=== PATIENT | female | born 1980 | race Caucasian/White ===

== ENCOUNTER 2021-05-17 12:09 | Observation (INO) | payer MEDICARE, SELFPAY ==
[2021-05-17] MEDS ORDERED: Metoclopramide HCl 10 MG/2 ML VIAL ONE (13:04)
[2021-05-17] MEDS ORDERED: HYDROmorphone 0.5 MG/0.5 ML SYRINGE ONE ×3 (13:05→15:56)
[2021-05-17] MEDS ORDERED: diphenhydrAMINE 50 MG/ML VIAL ONE (13:31)
[2021-05-17] MEDS ORDERED: Promethazine HCl 25 MG/ML VIAL ONE ×2 (13:32→20:34)
[2021-05-17] MEDS ORDERED: Senokot S 8.6-50 MG TAB PO PRN (14:51)
[2021-05-17] MEDS ORDERED: Bisacodyl 10 MG SUPP PR PRN (14:51)
[2021-05-17] MEDS ORDERED: Zolpidem Tartrate 5 MG TAB PO PRN (14:51)
[2021-05-17] MEDS ORDERED: Acetaminophen 325 MG TAB PO PRN (14:51)
[2021-05-17] MEDS ORDERED: Loperamide HCl 2 MG CAP PO PRN (14:51)
[2021-05-17] MEDS ORDERED: Calcium Carbonate 500 MG ChewTAB PO PRN (14:51)
[2021-05-17] MEDS ORDERED: Guaifenesin DM 100-10/5 ML UDCUP PO PRN (14:51)
[2021-05-17] MEDS ORDERED: cefTRIAXone\\ROCEPHIN 1 GM in Sodium Chloride 0.9% 100 ML IVPB SCH (15:00)
[2021-05-17] MEDS ORDERED: hydrALAZINE 20 MG/ML VIAL SLOW IVP PRN (15:08)
[2021-05-17] MEDS ORDERED: Cepastat Lozenges 1 LOZ PO PRN (15:08)
[2021-05-17] MEDS ORDERED: Hydrocerin (Eucerin) Cream 120 gm Jar TOP PRN (15:08)
[2021-05-17] MEDS ORDERED: GUAIFENESIN SF SOLN 200 MG/10 ML UDCUP PO PRN (15:08)
[2021-05-17] MEDS ORDERED: Benzonatate 100 MG CAP PO PRN (15:08)
[2021-05-17] MEDS ORDERED: Artificial Tear Sol 15 ML BOT EA EYE PRN (15:08)
[2021-05-17] MEDS ORDERED: Loratadine 10 MG TAB PO PRN (15:08)
[2021-05-17] MEDS ORDERED: Sodium Chloride 0.65% Nasal 44 ML BOT EA NARE PRN (15:08)
[2021-05-17] MEDS ORDERED: HYDROmorphone 2 MG TAB PO SCH ×2 (16:30→18:00)
[2021-05-17 18:31] LABS: SARS-CoV-2 NAA Rapid Test Not Detected (NotDetected)
[2021-05-17] MEDS: DIPHENHYDRAMINE IVPB SCH (19:00)
[2021-05-17] MEDS: Promethazine HCl 25 MG in Sodium Chloride 0.9% 50 ML IVPB SCH ×2 (19:00→20:50)
[2021-05-17] MEDS: SODIUM CHLORIDE 0.9% IVPB SCH (19:00)
[2021-05-17] MEDS ORDERED: Famotidine/PF 20 mg/2ml Vial SLOW IVP SCH (21:00)
[2021-05-17] MEDS ORDERED: Famotidine/PF 20 mg/2ml Vial ONE (21:20)
[2021-05-17] MEDS: HYDROmorphone 2 MG TAB PO PRN (21:50)
[2021-05-17] MEDS: D5 0.9% NS w/ 20 mEq KCl 1,000 ML IV SCH (22:00)
[2021-05-17] MEDS ORDERED: HYDROmorphone 2 MG TAB ONE (22:28)
[2021-05-17] MEDS ORDERED: cefTRIAXone\\ROCEPHIN 1 GM VIAL ONE (22:38)
[2021-05-18] MEDS: DIPHENHYDRAMINE IVPB SCH
[2021-05-18] MEDS: SODIUM CHLORIDE 0.9% IVPB SCH
[2021-05-18] MEDS ORDERED: HYDROmorphone 2 MG TAB ONE ×3 (02:11→09:57)
[2021-05-18] MEDS: HYDROmorphone 2 MG TAB PO PRN ×3 (02:30→11:00)
[2021-05-18] MEDS: Promethazine HCl 25 MG in Sodium Chloride 0.9% 50 ML IVPB SCH (04:00)
[2021-05-18 04:14] LABS: Anion Gap 12 mmol/L (10-20); BUN (Urea Nitrogen) 11 mg/dL (7.0-18.7); Calc. Creatinine Clearance 0 mL/min (70-130); Carbon Dioxide 23 mmol/L (22-29); Chloride 110 mmol/L (98-107); Glucose 121 mg/dL (70-105); Potassium 4.5 mmol/L (3.5-5.1); Sodium 140 mmol/L (136-145)
[2021-05-18 04:20] LABS: #Eosinphils 0.3 10x3/uL (0.0-0.5); #Monocytes 0.4 10x3/uL (0.0-1.1); #Neutrophils 3.1 10x3/uL (1.5-8.4); %Basophils 0.6 % (0.0-2.0); %Eosinophils 5.3 % (0.0-6.0); %Lymphocytes 23.8 % (18.0-47.0); %Monocytes 8.4 % (0.0-10.0); %Neutrophils 61.7 % (40.0-75.0); Mean Corpuscular HGB CONC 28.6 g/dL (32.0-36.0); Mean Corpuscular Hemoglobin 22.2 pg (27.0-33.0); Mean Corpuscular Volume 77.8 fl (81.6-98.3); Platelet Count 173 10x3/uL (150-450); RBC Distribution Width 14.9 % (11.5-14.5); Red Blood Cell (RBC) Count 4.05 10x6/uL (3.90-5.03); White Blood Cell (WBC) Count 5.1 10x3/uL (3.5-10.5)
[2021-05-18 04:39] LABS: Hypochromia SLIGHT = 6-15 cells (100X) (0-5/hpf)
[2021-05-18] MEDS: D5 0.9% NS w/ 20 mEq KCl 1,000 ML IV SCH (05:00)
[2021-05-18] MEDS ORDERED: Potassium Chloride 20 MEQ TAB ONE (05:58)
== END 2021-05-18 11:47 | disposition home or self-care (01) ==
LOC: CSHERS 12:09 → CSHERHOLD 16:55 → INTOOBSV 16:55
PROVIDERS: ADMIT Family Medicine; ATTEND Hospitalist
DX: R10.9 Unspecified abdominal pain (principal); R31.0 Gross hematuria; F41.9 Anxiety disorder, unspecified; F32.9 Major depressive disorder, single episode, unspecified; E66.9 Obesity, unspecified; M54.5 Low back pain; Z79.899 Other long term (current) drug therapy; Z20.822 Contact with and (suspected) exposure to COVID-19
CPT/HCPCS: 80048; 85025; 94760; U0002; 36415; 96374; 96375; G0378; J0696; J1170; J1200; J2550; J2765; J3480; J3490; S0028

== ENCOUNTER 2021-05-23 15:16 | Emergency (ER) | payer MEDICARE | END 2021-05-23 21:19 | disposition left against medical advice (07) | LOC: CSHERS 15:16 | DX: Z53.21 Procedure and treatment not carried out due to patient leaving prior to being seen by health care provider (principal) ==

== ENCOUNTER 2021-07-27 12:16 | Emergency (ER) | payer MEDICARE ==
[2021-07-27 12:39] LABS: Clarity Slightly Cloudy (Clear)
[2021-07-27 12:40] LABS: Pregnancy Test - Urine (BHCG) Negative (Negative); Pregu Control Background? CLEAR/WHITE (CLR/WHITE); Pregu Control Bar Appear? YES (CONTROL BAR)
[2021-07-27 13:09] LABS: Glucose, Urine (Dipstick) Unable to Interpret mg/dL (Negative); Ketone, Urine Unable to Interpret mg/dL (Negative); Leukocyte Unable to Interpret (Negative); Nitrite Unable to Interpret (Negative); Protein, Urine (Dipstick) Unable to Interpret mg/dl (Neg-Trace); Urobilinogen UNABLE TO INTERPRET mg/dL (Less than 2)
[2021-07-27 13:10] LABS: Bilirubin Unable to Interpret (Negative); Blood, Urine Unable to Interpret (Negative)
[2021-07-27 13:11] LABS: Bacteria/HPF None Seen HPF (None Seen); RBC/HPF 21-50 HPF (0-3); Squamous Epithelial 0-3 HPF (0-3); WBC/HPF None Seen HPF (0-3)
[2021-07-27 13:14] LABS: #Eosinphils 0.5 10x3/uL (0.0-0.5); #Monocytes 0.2 10x3/uL (0.0-1.1); #Neutrophils 3.1 10x3/uL (1.5-8.4); %Basophils 0.6 % (0.0-2.0); %Eosinophils 8.9 % (0.0-6.0); %Lymphocytes 25.9 % (18.0-47.0); %Neutrophils 60.4 % (40.0-75.0); Hemoglobin 11.1 g/dL (12.0-15.5); Mean Corpuscular HGB CONC 28.2 g/dL (32.0-36.0); Mean Corpuscular Hemoglobin 22.8 pg (27.0-33.0); Mean Corpuscular Volume 80.9 fl (81.6-98.3); Mean Platelet Volume 10.3 fl (7.4-10.4); Platelet Count 373 10x3/uL (150-450); RBC Distribution Width 15.9 % (11.5-14.5); Red Blood Cell (RBC) Count 4.87 10x6/uL (3.90-5.03); White Blood Cell (WBC) Count 5.1 10x3/uL (3.5-10.5)
[2021-07-27 13:30] LABS: ALT (SGPT) 17 U/L (8-55); Albumin 4.2 g/dL (3.5-5.0); Alkaline Phosphatase 119 U/L (40-110); Anion Gap 17 mmol/L (10-20); BUN (Urea Nitrogen) 11 mg/dL (7.0-18.7); Bilirubin, Total 0.4 mg/dL (0.2-1.2); Calc. Creatinine Clearance 0 mL/min (70-130); Calcium 9.3 mg/dL (7.8-10.44); Carbon Dioxide 20 mmol/L (22-29); Chloride 107 mmol/L (98-107); Globulin 4.5 g/dL (2.4-3.5); Glucose 137 mg/dL (70-105); Lipase 31 U/L (8-78); Potassium 5.1 mmol/L (3.5-5.1); Protein, Total 8.7 g/dL (6.0-8.3); Sodium 139 mmol/L (136-145)
[2021-07-27 13:40] LABS: AST (SGOT) 33 U/L (5-34)
[2021-07-27 14:10] LABS: Anisocytosis SLIGHT = 6-15 cells (100X) (0-5/hpf); Hypochromia SLIGHT = 6-15 cells (100X) (0-5/hpf); Microcytosis SLIGHT = 6-15 cells (100X) (0-5/hpf); Platelet Morphology Comment Appears Adequate
[2021-07-27] MEDS ORDERED: HYDROmorphone 0.5 MG/0.5 ML SYRINGE ONE ×3 (14:40→17:43)
[2021-07-27] MEDS ORDERED: Promethazine HCl 25 MG/ML VIAL ONE (14:41)
== END 2021-07-27 18:22 | disposition home or self-care (01) ==
LOC: CSHERS 12:16
DX: R10.9 Unspecified abdominal pain (principal)
CPT/HCPCS: 36415; 80053; 81003; 81015; 81025; 83690; 85025; 96361; 96365; 96375; 96376; J1170; J2550

== ENCOUNTER 2021-07-28 10:01 | Observation (INO) | payer MEDICARE ==
[2021-07-28] MEDS ORDERED: Morphine 4 MG/ML VIAL ONE (11:38)
[2021-07-28] MEDS ORDERED: Ketamine 50 MG/ML (10ML VIAL) ONE (11:55)
[2021-07-28 12:05] LABS: Hemoglobin 9.6 g/dL (12.0-15.5); Mean Corpuscular HGB CONC 29.1 g/dL (32.0-36.0); Mean Corpuscular Hemoglobin 22.9 pg (27.0-33.0); Mean Corpuscular Volume 78.6 fl (81.6-98.3); Mean Platelet Volume 9.7 fl (7.4-10.4); Platelet Count 318 10x3/uL (150-450); RBC Distribution Width 15.8 % (11.5-14.5); White Blood Cell (WBC) Count 4.6 10x3/uL (3.5-10.5)
[2021-07-28 12:07] LABS: ALT (SGPT) 14 U/L (8-55); AST (SGOT) 14 U/L (5-34); Albumin 3.8 g/dL (3.5-5.0); Alkaline Phosphatase 100 U/L (40-110); Anion Gap 11 mmol/L (10-20); BUN (Urea Nitrogen) 8 mg/dL (7.0-18.7); Bilirubin, Total 0.3 mg/dL (0.2-1.2); Calc. Creatinine Clearance 0 mL/min (70-130); Carbon Dioxide 24 mmol/L (22-29); Chloride 109 mmol/L (98-107); Globulin 3.9 g/dL (2.4-3.5); Glucose 88 mg/dL (70-105); Protein, Total 7.7 g/dL (6.0-8.3); Sodium 140 mmol/L (136-145)
[2021-07-28 12:28] LABS: #Eosinphils 0.4 10x3/uL (0.0-0.5); #Monocytes 0.2 10x3/uL (0.0-1.1); #Neutrophils 2.2 10x3/uL (1.5-8.4); %Basophils 0.9 % (0.0-2.0); %Eosinophils 8.7 % (0.0-6.0); %Lymphocytes 38.3 % (18.0-47.0); %Neutrophils 46.9 % (40.0-75.0)
[2021-07-28 12:38] LABS: Elliptocytes SLIGHT = 2-5 cells (100X) (0-1/hpf); Ovalocytes SLIGHT = 2-5 cells (100X) (0-1/hpf)
[2021-07-28 12:39] LABS: Platelet Morphology Comment Appears Adequate
[2021-07-28] MEDS ORDERED: Acetaminophen 325 MG TAB PO PRN (14:45)
[2021-07-28] MEDS ORDERED: Promethazine 25 MG TAB PO PRN (14:51)
[2021-07-28 14:56] VITALS: BMI 21.2
[2021-07-28] MEDS: HYDROmorphone 2 MG TAB PO PRN ×3 (15:11→23:16)
[2021-07-28] MEDS: Lactated Ringer's 1,000 ML IV SCH ×2 (15:12→22:04)
[2021-07-28] MEDS: diphenhydrAMINE 50 MG/ML VIAL IVP PRN ×2 (16:35→22:03)
[2021-07-28] MEDS ORDERED: FLUoxetine HCl 20 MG CAP PO SCH (21:00)
[2021-07-28 21:24] LABS: Hemoglobin 9.5 g/dL (12.0-15.5)
[2021-07-29 00:37] LABS: SARS-CoV-2 PCR by NAA Not Detected (NotDetected)
[2021-07-29] MEDS: HYDROmorphone 2 MG TAB PO PRN ×3 (03:06→11:12)
[2021-07-29] MEDS: diphenhydrAMINE 50 MG/ML VIAL IVP PRN (04:22)
[2021-07-29 05:38] LABS: Anion Gap 14 mmol/L (10-20); BUN (Urea Nitrogen) 15 mg/dL (7.0-18.7); Calc. Creatinine Clearance 103 mL/min (70-130); Calcium 8.4 mg/dL (7.8-10.44); Carbon Dioxide 19 mmol/L (22-29); Chloride 108 mmol/L (98-107); Glucose 87 mg/dL (70-105); Potassium 4.4 mmol/L (3.5-5.1); Sodium 137 mmol/L (136-145)
[2021-07-29] MEDS: Lactated Ringer's 1,000 ML IV SCH (05:53)
[2021-07-29 06:24] LABS: #Basophils 0.1 10x3/uL (0.0-0.2); #Eosinphils 0.4 10x3/uL (0.0-0.5); #Monocytes 0.3 10x3/uL (0.0-1.1); #Neutrophils 2.2 10x3/uL (1.5-8.4); %Basophils 1.1 % (0.0-2.0); %Eosinophils 8.4 % (0.0-6.0); %Lymphocytes 37.9 % (18.0-47.0); %Monocytes 6.9 % (0.0-10.0); %Neutrophils 45.5 % (40.0-75.0); Hemoglobin 8.7 g/dL (12.0-15.5); Mean Corpuscular HGB CONC 29.4 g/dL (32.0-36.0); Mean Corpuscular Hemoglobin 23.3 pg (27.0-33.0); Mean Corpuscular Volume 79.4 fl (81.6-98.3); Mean Platelet Volume 9.5 fl (7.4-10.4); Platelet Count 246 10x3/uL (150-450); RBC Distribution Width 15.7 % (11.5-14.5); Red Blood Cell (RBC) Count 3.73 10x6/uL (3.90-5.03); White Blood Cell (WBC) Count 4.8 10x3/uL (3.5-10.5)
[2021-07-29 08:35] VITALS: BP 101/59; TEMP 97.3
== END 2021-07-29 11:44 | disposition home or self-care (01) ==
LOC: CSHERS 10:01 → CSHTELE 13:49
PROVIDERS: ADMIT Hospitalist; ATTEND Physician Assistant Medical
DX: R10.9 Unspecified abdominal pain (principal); N39.8 Other specified disorders of urinary system; D62 Acute posthemorrhagic anemia; R11.2 Nausea with vomiting, unspecified; Z79.899 Other long term (current) drug therapy; Z90.49 Acquired absence of other specified parts of digestive tract; Z90.710 Acquired absence of both cervix and uterus; Z20.822 Contact with and (suspected) exposure to COVID-19
CPT/HCPCS: 80048; 80053; 85014; 85018; 85025 ×2; 96374; 96375 ×2; 96376 ×2; 99284; G0378 ×2; U0003; U0005; J1200; J2270; J7120

== ENCOUNTER 2021-07-31 17:01 | Observation (INO) | payer MEDICARE ==
[2021-07-31 18:02] LABS: #Eosinphils 0.4 10x3/uL (0.0-0.5); #Monocytes 0.4 10x3/uL (0.0-1.1); #Neutrophils 2.3 10x3/uL (1.5-8.4); %Basophils 0.8 % (0.0-2.0); %Eosinophils 7.7 % (0.0-6.0); %Lymphocytes 39.4 % (18.0-47.0); %Monocytes 7.5 % (0.0-10.0); %Neutrophils 44.4 % (40.0-75.0); Hemoglobin 9.4 g/dL (12.0-15.5); Mean Corpuscular HGB CONC 29.4 g/dL (32.0-36.0); Mean Corpuscular Hemoglobin 22.9 pg (27.0-33.0); Mean Corpuscular Volume 77.9 fl (81.6-98.3); Mean Platelet Volume 9.9 fl (7.4-10.4); Platelet Count 293 10x3/uL (150-450); RBC Distribution Width 15.3 % (11.5-14.5); Red Blood Cell (RBC) Count 4.11 10x6/uL (3.90-5.03); White Blood Cell (WBC) Count 5.1 10x3/uL (3.5-10.5)
[2021-07-31 18:10] LABS: ALT (SGPT) 14 U/L (8-55); AST (SGOT) 13 U/L (5-34); Albumin 3.9 g/dL (3.5-5.0); Alkaline Phosphatase 82 U/L (40-110); Anion Gap 12 mmol/L (10-20); BUN (Urea Nitrogen) 7 mg/dL (7.0-18.7); Bilirubin, Total 0.3 mg/dL (0.2-1.2); CK (CPK) 28 U/L (29-168); Calc. Creatinine Clearance 0 mL/min (70-130); Calcium 8.6 mg/dL (7.8-10.44); Carbon Dioxide 24 mmol/L (22-29); Chloride 111 mmol/L (98-107); Globulin 3.2 g/dL (2.4-3.5); Glucose 71 mg/dL (70-105); Lipase 24 U/L (8-78); Magnesium 1.9 mg/dL (1.6-2.6); Potassium 3.7 mmol/L (3.5-5.1); Protein, Total 7.1 g/dL (6.0-8.3); Sodium 143 mmol/L (136-145)
[2021-07-31] MEDS ORDERED: HYDROmorphone 0.5 MG/0.5 ML SYRINGE ONE (18:29)
[2021-07-31] MEDS ORDERED: Promethazine HCl 25 MG/ML VIAL ONE (18:29)
[2021-07-31 18:34] LABS: Anisocytosis SLIGHT = 6-15 cells (100X) (0-5/hpf); Elliptocytes SLIGHT = 2-5 cells (100X) (0-1/hpf); Hypochromia SLIGHT = 6-15 cells (100X) (0-5/hpf); Microcytosis SLIGHT = 6-15 cells (100X) (0-5/hpf); Platelet Morphology Comment Appears Adequate; Tear Drops SLIGHT = 2-5 cells (100X) (0-1/hpf)
[2021-07-31 21:15] VITALS: BMI 21.2
[2021-07-31] MEDS ORDERED: Promethazine HCl 12.5 MG in Sodium Chloride 0.9% 50 ML IVPB PRN (21:56)
[2021-07-31] MEDS ORDERED: Promethazine HCl 25 MG SUPP PR PRN (21:56)
[2021-07-31] MEDS ORDERED: Promethazine 25 MG TAB PO PRN (21:59)
[2021-07-31] MEDS: HYDROmorphone 2 MG TAB PO PRN ×2 (22:17→22:35)
[2021-07-31] MEDS: NS 0.9% w/ 20 MEQ KCL 1,000 ML/1,000 ML BAG IV SCH ×2 (22:19→22:34)
[2021-08-01] MEDS: HYDROmorphone 2 MG TAB PO PRN ×4 (02:23→13:20)
[2021-08-01 06:09] LABS: Hemoglobin 9.7 g/dL (12.0-15.5); Mean Corpuscular HGB CONC 29.5 g/dL (32.0-36.0); Mean Corpuscular Hemoglobin 23.4 pg (27.0-33.0); Mean Corpuscular Volume 79.3 fl (81.6-98.3); Mean Platelet Volume 9.7 fl (7.4-10.4); Platelet Count 239 10x3/uL (150-450); RBC Distribution Width 15.3 % (11.5-14.5); Red Blood Cell (RBC) Count 4.15 10x6/uL (3.90-5.03); White Blood Cell (WBC) Count 4.6 10x3/uL (3.5-10.5)
[2021-08-01 06:26] LABS: Anion Gap 12 mmol/L (10-20); BUN (Urea Nitrogen) 10 mg/dL (7.0-18.7); Calc. Creatinine Clearance 103 mL/min (70-130); Calcium 8.5 mg/dL (7.8-10.44); Carbon Dioxide 26 mmol/L (22-29); Chloride 109 mmol/L (98-107); Glucose 102 mg/dL (70-105); MDiff Complete? YES; Magnesium 1.8 mg/dL (1.6-2.6); Potassium 3.6 mmol/L (3.5-5.1); Sodium 143 mmol/L (136-145)
[2021-08-01 06:30] LABS: Eosinophils 6 % (0-10); Lymphocytes 42 % (21-51); Monocytes 8 % (0-10); Neutrophil 44 % (42-75)
[2021-08-01 06:31] LABS: Elliptocytes SLIGHT = 2-5 cells (100X) (0-1/hpf); Hypochromia SLIGHT = 6-15 cells (100X) (0-5/hpf)
[2021-08-01 06:32] LABS: Platelet Morphology Comment Appears Adequate
[2021-08-01] MEDS: NS 0.9% w/ 20 MEQ KCL 1,000 ML/1,000 ML BAG IV SCH (07:02)
[2021-08-01] MEDS: Fentanyl 100 MCG/2 ML VIAL SLOW IVP PRN ×2 (08:04→11:29)
[2021-08-01 08:07] VITALS: TEMP 98.2
[2021-08-01] MEDS ORDERED: FLU VACC QS2021-22(6MOS UP)/PF 60 MCG/0.5 ML SYRINGE IM ONE (09:00)
[2021-08-01 12:01] VITALS: BP 131/80
[2021-08-01] MEDS ORDERED: HYDROmorphone 0.5 MG/0.5 ML SYRINGE SLOW IVP SCH (13:00)
[2021-08-01] MEDS ORDERED: FLUoxetine HCl 20 MG CAP PO SCH (21:00)
== END 2021-08-01 13:30 | disposition home or self-care (01) ==
LOC: CSHERS 17:01 → CSHTELE 21:05 → INTOOBSV 21:05
PROVIDERS: ADMIT Family Medicine; ATTEND Internal Medicine
DX: N39.8 Other specified disorders of urinary system (principal); R31.9 Hematuria, unspecified; R10.9 Unspecified abdominal pain; Z90.49 Acquired absence of other specified parts of digestive tract; Z90.710 Acquired absence of both cervix and uterus; D50.9 Iron deficiency anemia, unspecified; F41.1 Generalized anxiety disorder
CPT/HCPCS: 36415; 80048; 80053; 82550; 83690; 83735; 85025; 93005; 94760; 96374; 96375; 96376; G0378; J1170; J2550; J3010; J3480

== ENCOUNTER 2021-08-02 11:06 | Inpatient (IN) | payer MEDICARE ==
[2021-08-02] MEDS ORDERED: Promethazine HCl 25 MG/ML VIAL ONE ×2 (13:22→21:44)
[2021-08-02] MEDS ORDERED: HYDROmorphone 0.5 MG/0.5 ML SYRINGE ONE ×2 (13:22→16:46)
[2021-08-02 15:41] LABS: Bilirubin Neg (Negative); Blood, Urine 250 (Negative); Clarity Slightly Cloudy (Clear); Glucose, Urine (Dipstick) Normal (Negative); Ketone, Urine Negative (Negative); Leukocyte 25 (Negative); Nitrite Negative (Negative); Protein, Urine (Dipstick) 30 mg/dl (Neg-Trace); Specific Gravity, Urine 1.005 (1.002-1.036); Urobilinogen Normal mg/dL (Less than 2)
[2021-08-02 15:52] LABS: RBC/HPF 21-50 HPF (0-3); WBC/HPF 0-3 HPF (0-3)
[2021-08-02 15:53] LABS: Bacteria/HPF Rare-Few HPF (None Seen); Squamous Epithelial 0-3 HPF (0-3)
[2021-08-02 16:06] LABS: #Basophils 0.1 10x3/uL (0.0-0.2); #Eosinphils 0.4 10x3/uL (0.0-0.5); #Monocytes 0.2 10x3/uL (0.0-1.1); %Basophils 1.1 % (0.0-2.0); %Eosinophils 9.2 % (0.0-6.0); %Lymphocytes 33.5 % (18.0-47.0); %Monocytes 5.4 % (0.0-10.0); Hemoglobin 10.3 g/dL (12.0-15.5); Mean Corpuscular HGB CONC 29.3 g/dL (32.0-36.0); Mean Corpuscular Volume 78.7 fl (81.6-98.3); Mean Platelet Volume 10.2 fl (7.4-10.4); Platelet Count 271 10x3/uL (150-450); RBC Distribution Width 14.9 % (11.5-14.5); Red Blood Cell (RBC) Count 4.47 10x6/uL (3.90-5.03); White Blood Cell (WBC) Count 4.5 10x3/uL (3.5-10.5)
[2021-08-02 16:07] LABS: #Neutrophils 2.3 10x3/uL (1.5-8.4); %Neutrophils 50.8 % (40.0-75.0)
[2021-08-02 16:18] LABS: ALT (SGPT) 13 U/L (8-55); AST (SGOT) 18 U/L (5-34); Alkaline Phosphatase 89 U/L (40-110); Anion Gap 15 mmol/L (10-20); BUN (Urea Nitrogen) 11 mg/dL (7.0-18.7); Bilirubin, Total 0.5 mg/dL (0.2-1.2); Calc. Creatinine Clearance 0 mL/min (70-130); Calcium 8.8 mg/dL (7.8-10.44); Carbon Dioxide 22 mmol/L (22-29); Chloride 107 mmol/L (98-107); Globulin 3.4 g/dL (2.4-3.5); Glucose 90 mg/dL (70-105); Potassium 4.3 mmol/L (3.5-5.1); Protein, Total 7.4 g/dL (6.0-8.3); Sodium 140 mmol/L (136-145)
[2021-08-02 16:46] LABS: Elliptocytes SLIGHT = 2-5 cells (100X) (0-1/hpf); Hypochromia SLIGHT = 6-15 cells (100X) (0-5/hpf)
[2021-08-02] MEDS ORDERED: Acetaminophen 325 MG TAB PO PRN (17:59)
[2021-08-02] MEDS: HYDROmorphone 2 MG TAB PO PRN ×2 (18:45→22:32)
[2021-08-02] MEDS: Sodium Chloride 0.9% 1,000 ML IV SCH (19:10)
[2021-08-02 19:45] VITALS: BMI 21.6
[2021-08-02] MEDS: Famotidine 20 MG TAB PO SCH (20:50)
[2021-08-02] MEDS: FLUoxetine HCl 20 MG CAP PO SCH (20:50)
[2021-08-02] MEDS: Fentanyl 100 MCG/2 ML VIAL SLOW IVP PRN (20:50)
[2021-08-02] MEDS: Promethazine 25 MG TAB PO PRN (21:01)
[2021-08-02] MEDS ORDERED: Sodium Chloride 0.9% 50 ML ONE (21:44)
[2021-08-02] MEDS: Promethazine HCl 12.5 MG in Sodium Chloride 0.9% 50 ML IVPB PRN (21:46)
[2021-08-03] MEDS: HYDROmorphone 2 MG TAB PO PRN ×7 (02:10→23:06)
[2021-08-03] MEDS: Sodium Chloride 0.9% 1,000 ML IV SCH ×2 (05:47→22:46)
[2021-08-03] MEDS ORDERED: Promethazine HCl 25 MG/ML VIAL ONE (06:16)
[2021-08-03] MEDS: Promethazine HCl 12.5 MG in Sodium Chloride 0.9% 50 ML IVPB PRN (06:19)
[2021-08-03 07:11] LABS: Anion Gap 14 mmol/L (10-20); BUN (Urea Nitrogen) 13 mg/dL (7.0-18.7); Calc. Creatinine Clearance 106 mL/min (70-130); Calcium 8.5 mg/dL (7.8-10.44); Carbon Dioxide 22 mmol/L (22-29); Chloride 109 mmol/L (98-107); Glucose 94 mg/dL (70-105); Potassium 4.4 mmol/L (3.5-5.1); Sodium 141 mmol/L (136-145)
[2021-08-03 07:13] LABS: #Eosinphils 0.5 10x3/uL (0.0-0.5); #Monocytes 0.3 10x3/uL (0.0-1.1); #Neutrophils 2.7 10x3/uL (1.5-8.4); %Basophils 0.7 % (0.0-2.0); %Eosinophils 8.5 % (0.0-6.0); %Lymphocytes 34.2 % (18.0-47.0); %Neutrophils 49.7 % (40.0-75.0); Hemoglobin 9.8 g/dL (12.0-15.5); Mean Corpuscular HGB CONC 29.6 g/dL (32.0-36.0); Mean Corpuscular Hemoglobin 22.7 pg (27.0-33.0); Mean Corpuscular Volume 76.8 fl (81.6-98.3); Mean Platelet Volume 10.8 fl (7.4-10.4); Platelet Count 280 10x3/uL (150-450); Red Blood Cell (RBC) Count 4.31 10x6/uL (3.90-5.03); White Blood Cell (WBC) Count 5.5 10x3/uL (3.5-10.5)
[2021-08-03] MEDS: Famotidine 20 MG TAB PO SCH ×2 (08:58→22:46)
[2021-08-03] MEDS: Promethazine 25 MG TAB PO PRN ×2 (12:54→19:30)
[2021-08-03] MEDS: FLUoxetine HCl 20 MG CAP PO SCH (22:45)
[2021-08-04] MEDS: Promethazine 25 MG TAB PO PRN ×2 (01:34→13:40)
[2021-08-04] MEDS: Fentanyl 100 MCG/2 ML VIAL SLOW IVP PRN ×4 (01:35→13:40)
[2021-08-04] MEDS: HYDROmorphone 2 MG TAB PO PRN ×6 (02:58→23:20)
[2021-08-04] MEDS: Famotidine 20 MG TAB PO SCH ×2 (09:02→20:29)
[2021-08-04] MEDS: Sodium Chloride 0.9% 1,000 ML IV SCH ×2 (09:03→23:50)
[2021-08-04] MEDS: Promethazine HCl 12.5 MG in Sodium Chloride 0.9% 50 ML IVPB PRN (09:40)
[2021-08-04] MEDS ORDERED: Promethazine HCl 25 MG SUPP PR PRN (13:47)
[2021-08-04] MEDS: FLUoxetine HCl 20 MG CAP PO SCH (20:29)
[2021-08-05] MEDS: HYDROmorphone 2 MG TAB PO PRN ×3 (03:06→10:33)
[2021-08-05 08:19] VITALS: BP 111/57; TEMP 98.5
[2021-08-05] MEDS: Famotidine 20 MG TAB PO SCH (08:47)
== END 2021-08-05 11:25 | disposition home or self-care (01) | DRG 552 ==
LOC: CSHERS 11:06 → CSHTELE 17:52 → OBSVTOIN 08-03 15:15
PROVIDERS: ADMIT Internal Medicine; ATTEND Internal Medicine
DX: M54.50 Low back pain, unspecified (principal); R31.0 Gross hematuria; F41.1 Generalized anxiety disorder; Z91.041 Radiographic dye allergy status; Z88.5 Allergy status to narcotic agent; Z88.8 Allergy status to other drugs, medicaments and biological substances; Z90.49 Acquired absence of other specified parts of digestive tract; Z90.710 Acquired absence of both cervix and uterus
CPT/HCPCS: 36415; 80048; 80053; 81003; 81015; 85025; 96365; 96366; 96375; 96376; J1170; J2550; J3010; J7050; Q0169

== ENCOUNTER 2021-08-08 11:15 | Emergency (ER) | payer MEDICARE ==
[2021-08-08] MEDS ORDERED: Morphine 4 MG/ML VIAL ONE (12:25)
[2021-08-08] MEDS ORDERED: Promethazine HCl 25 MG/ML VIAL ONE (12:26)
[2021-08-08 12:51] LABS: #Eosinphils 0.1 10x3/uL (0.0-0.5); #Monocytes 0.4 10x3/uL (0.0-1.1); #Neutrophils 1.6 10x3/uL (1.5-8.4); %Basophils 0.9 % (0.0-2.0); %Lymphocytes 37.8 % (18.0-47.0); %Monocytes 10.6 % (0.0-10.0); %Neutrophils 46.1 % (40.0-75.0); Hemoglobin 10.1 g/dL (12.0-15.5); Mean Corpuscular HGB CONC 30.1 g/dL (32.0-36.0); Mean Corpuscular Hemoglobin 23.2 pg (27.0-33.0); Mean Corpuscular Volume 77.1 fl (81.6-98.3); Platelet Count 246 10x3/uL (150-450); RBC Distribution Width 15.8 % (11.5-14.5); Red Blood Cell (RBC) Count 4.36 10x6/uL (3.90-5.03); White Blood Cell (WBC) Count 3.5 10x3/uL (3.5-10.5)
[2021-08-08 13:01] LABS: ALT (SGPT) 18 U/L (8-55); AST (SGOT) 23 U/L (5-34); Albumin 4.1 g/dL (3.5-5.0); Alkaline Phosphatase 98 U/L (40-110); Anion Gap 15 mmol/L (10-20); BUN (Urea Nitrogen) 12 mg/dL (7.0-18.7); Bilirubin, Total 0.6 mg/dL (0.2-1.2); Calc. Creatinine Clearance 0 mL/min (70-130); Calcium 8.9 mg/dL (7.8-10.44); Carbon Dioxide 23 mmol/L (22-29); Chloride 108 mmol/L (98-107); Globulin 3.3 g/dL (2.4-3.5); Glucose 95 mg/dL (70-105); Potassium 4.2 mmol/L (3.5-5.1); Protein, Total 7.4 g/dL (6.0-8.3); Sodium 142 mmol/L (136-145)
[2021-08-08] MEDS ORDERED: HYDROmorphone 0.5 MG/0.5 ML SYRINGE ONE (13:31)
== END 2021-08-08 14:34 | disposition home or self-care (01) ==
LOC: CSHERS 11:15
DX: R55 Syncope and collapse (principal); N28.9 Disorder of kidney and ureter, unspecified; Z79.899 Other long term (current) drug therapy
CPT/HCPCS: 36415; 71045; 80053; 84484; 85025; 93005; J1170; J2270; J2550

== ENCOUNTER 2021-08-08 19:34 | Inpatient (IN) | payer MEDICARE ==
[2021-08-08] MEDS ORDERED: Morphine 4 MG/ML VIAL ONE (20:54)
[2021-08-08] MEDS ORDERED: Promethazine HCl 25 MG/ML VIAL ONE (20:55)
[2021-08-08 20:59] LABS: Hemoglobin 9.6 g/dL (12.0-15.5); Mean Corpuscular HGB CONC 29.9 g/dL (32.0-36.0); Mean Corpuscular Hemoglobin 23.1 pg (27.0-33.0); Mean Corpuscular Volume 77.2 fl (81.6-98.3); Mean Platelet Volume 11.1 fl (7.4-10.4); Platelet Count 210 10x3/uL (150-450); RBC Distribution Width 15.6 % (11.5-14.5); Red Blood Cell (RBC) Count 4.16 10x6/uL (3.90-5.03); White Blood Cell (WBC) Count 3.8 10x3/uL (3.5-10.5)
[2021-08-08 21:02] LABS: ALT (SGPT) 17 U/L (8-55); AST (SGOT) 22 U/L (5-34); Alkaline Phosphatase 92 U/L (40-110); Anion Gap 13 mmol/L (10-20); BUN (Urea Nitrogen) 11 mg/dL (7.0-18.7); Bilirubin, Total 0.5 mg/dL (0.2-1.2); CK (CPK) 258 U/L (29-168); Calc. Creatinine Clearance 0 mL/min (70-130); Calcium 8.5 mg/dL (7.8-10.44); Carbon Dioxide 25 mmol/L (22-29); Chloride 109 mmol/L (98-107); Glucose 84 mg/dL (70-105); Magnesium 1.9 mg/dL (1.6-2.6); Potassium 4.1 mmol/L (3.5-5.1); Sodium 143 mmol/L (136-145)
[2021-08-08 21:25] LABS: MDiff Complete? YES; Manual Diff?? YES
[2021-08-08 21:28] LABS: Band 4 % (5-11); Eosinophils 9 % (0-10); Lymphocytes 44 % (21-51); Monocytes 8 % (0-10); Neutrophil 32 % (42-75); Reactive Lymphocytes 2 % (0-10)
[2021-08-08 21:29] LABS: Anisocytosis SLIGHT = 6-15 cells (100X) (0-5/hpf); Platelet Morphology Comment Appears Adequate
[2021-08-08 21:30] LABS: Elliptocytes SLIGHT = 2-5 cells (100X) (0-1/hpf); Hypochromia SLIGHT = 6-15 cells (100X) (0-5/hpf); Schistocytes SLIGHT = 2-5 cells (100X) (0-1/hpf)
[2021-08-08 23:31] VITALS: BMI 22.7
[2021-08-08] MEDS ORDERED: HYDROmorphone 2 MG TAB PO SCH (23:45)
[2021-08-09] MEDS ORDERED: Senokot S 8.6-50 MG TAB PO PRN (00:36)
[2021-08-09] MEDS ORDERED: Acetaminophen 325 MG TAB PO PRN (00:36)
[2021-08-09] MEDS ORDERED: Promethazine 25 MG TAB PO PRN (00:46)
[2021-08-09] MEDS: HYDROmorphone 2 MG TAB PO PRN ×5 (03:50→21:07)
[2021-08-09 06:24] LABS: #Eosinphils 0.3 10x3/uL (0.0-0.5); #Monocytes 0.3 10x3/uL (0.0-1.1); #Neutrophils 1.4 10x3/uL (1.5-8.4); %Basophils 0.9 % (0.0-2.0); %Eosinophils 7.8 % (0.0-6.0); %Lymphocytes 41.4 % (18.0-47.0); %Monocytes 9.9 % (0.0-10.0); %Neutrophils 39.7 % (40.0-75.0); Hemoglobin 9.4 g/dL (12.0-15.5); Mean Corpuscular HGB CONC 29.5 g/dL (32.0-36.0); Mean Corpuscular Hemoglobin 23.2 pg (27.0-33.0); Mean Corpuscular Volume 78.6 fl (81.6-98.3); Mean Platelet Volume 10.7 fl (7.4-10.4); Platelet Count 198 10x3/uL (150-450); RBC Distribution Width 15.7 % (11.5-14.5); Red Blood Cell (RBC) Count 4.06 10x6/uL (3.90-5.03); White Blood Cell (WBC) Count 3.5 10x3/uL (3.5-10.5)
[2021-08-09 06:42] LABS: Ovalocytes SLIGHT = 2-5 cells (100X) (0-1/hpf); Troponin I Less than 0.010 ng/mL (< 0.028)
[2021-08-09 06:43] LABS: Anion Gap 13 mmol/L (10-20); BUN (Urea Nitrogen) 11 mg/dL (7.0-18.7); Calc. Creatinine Clearance 104 mL/min (70-130); Calcium 8.3 mg/dL (7.8-10.44); Carbon Dioxide 22 mmol/L (22-29); Chloride 111 mmol/L (98-107); Glucose 120 mg/dL (70-105); Magnesium 1.8 mg/dL (1.6-2.6); Platelet Morphology Comment Appears Adequate; Sodium 142 mmol/L (136-145)
[2021-08-09] MEDS ORDERED: Magnesium Oxide 400 MG TAB PO SCH (09:45)
[2021-08-09 11:47] LABS: SARS-CoV-2 PCR by NAA Not Detected (NotDetected)
[2021-08-09] MEDS ORDERED: Promethazine HCl 25 MG/ML VIAL IM PRN (12:57)
[2021-08-09] MEDS ORDERED: Promethazine HCl 12.5 MG in Sodium Chloride 0.9% 50 ML IVPB PRN (13:21)
[2021-08-09] MEDS: FLUoxetine HCl 20 MG CAP PO SCH (21:08)
[2021-08-10] MEDS: HYDROmorphone 2 MG TAB PO PRN ×6 (01:14→21:23)
[2021-08-10 09:01] LABS: Magnesium 1.8 mg/dL (1.6-2.6)
[2021-08-10] MEDS: Magnesium Oxide 400 MG TAB PO SCH (09:38)
[2021-08-10] MEDS: FLUoxetine HCl 20 MG CAP PO SCH (21:07)
[2021-08-11] MEDS: HYDROmorphone 2 MG TAB PO PRN ×4 (01:31→13:00)
[2021-08-11 04:25] LABS: Anion Gap 16 mmol/L (10-20); BUN (Urea Nitrogen) 9 mg/dL (7.0-18.7); Calc. Creatinine Clearance 103 mL/min (70-130); Calcium 8.5 mg/dL (7.8-10.44); Carbon Dioxide 22 mmol/L (22-29); Chloride 103 mmol/L (98-107); Glucose 117 mg/dL (70-105); Magnesium 1.9 mg/dL (1.6-2.6); Potassium 4.4 mmol/L (3.5-5.1); Sodium 137 mmol/L (136-145)
[2021-08-11] MEDS ORDERED: Enoxaparin Sodium 40 MG/0.4 ML SYRINGE SC SCH (09:00)
[2021-08-11] MEDS: Magnesium Oxide 400 MG TAB PO SCH (09:12)
[2021-08-11 12:12] VITALS: BP 114/56; TEMP 98.6
== END 2021-08-11 13:36 | disposition home or self-care (01) | DRG 312 ==
LOC: CSHERS 19:34 → INTOOBSV 19:35 → CSHTELE 19:35 → UNDOADMOB 19:35 → INTOOBSV 08-09 00:36 → OBSVTOIN 08-09 00:36 → CSHTELE 08-09 00:36 → OBSVTOIN 08-10 15:04 → CSHTELE 08-10 15:04
PROVIDERS: ADMIT Family Medicine; ATTEND Internal Medicine
DX: R55 Syncope and collapse (principal); I47.1 Supraventricular tachycardia; M54.50 Low back pain, unspecified; F41.1 Generalized anxiety disorder; Z20.822 Contact with and (suspected) exposure to COVID-19; Z91.041 Radiographic dye allergy status; Z88.5 Allergy status to narcotic agent; Z88.8 Allergy status to other drugs, medicaments and biological substances; Z90.49 Acquired absence of other specified parts of digestive tract; Z90.710 Acquired absence of both cervix and uterus; Z90.722 Acquired absence of ovaries, bilateral
CPT/HCPCS: 36415; 71045; 80048; 80053; 82550; 83735; 84443; 84484; 85025; 93005; 93306; 96374; 96375; G0378; J1170; J2270; J2550; Q0169; U0003; U0005

== ENCOUNTER 2021-08-12 16:48 | Emergency (ER) | payer MEDICARE ==
[2021-08-12] MEDS ORDERED: Acetaminophen 500 MG TAB ONE (18:25)
== END 2021-08-12 18:40 | disposition home or self-care (01) ==
LOC: CSHERS 16:48
DX: R55 Syncope and collapse (principal); S09.90XA Unspecified injury of head, initial encounter; R29.700 NIHSS score 0; N28.9 Disorder of kidney and ureter, unspecified; Z79.899 Other long term (current) drug therapy
CPT/HCPCS: 70450; 93005

== ENCOUNTER 2021-08-27 14:39 | Emergency (ER) | payer MEDICARE ==
[2021-08-27 16:38] LABS: #Eosinphils 0.2 10x3/uL (0.0-0.5); #Monocytes 0.3 10x3/uL (0.0-1.1); #Neutrophils 2.8 10x3/uL (1.5-8.4); %Basophils 0.6 % (0.0-2.0); %Eosinophils 3.2 % (0.0-6.0); %Lymphocytes 34.8 % (18.0-47.0); %Neutrophils 56.2 % (40.0-75.0); Hemoglobin 11.1 g/dL (12.0-15.5); Mean Corpuscular HGB CONC 29.5 g/dL (32.0-36.0); Mean Corpuscular Hemoglobin 22.4 pg (27.0-33.0); Mean Corpuscular Volume 75.8 fl (81.6-98.3); Mean Platelet Volume 10.2 fl (7.4-10.4); Platelet Count 239 10x3/uL (150-450); Red Blood Cell (RBC) Count 4.96 10x6/uL (3.90-5.03)
[2021-08-27] MEDS ORDERED: Promethazine HCl 25 MG/ML VIAL ONE (16:54)
[2021-08-27] MEDS ORDERED: Pantoprazole 40 MG VIAL ONE (16:55)
[2021-08-27 16:58] LABS: ALT (SGPT) 20 U/L (8-55); AST (SGOT) 29 U/L (5-34); Albumin 4.7 g/dL (3.5-5.0); Alkaline Phosphatase 113 U/L (40-110); Anion Gap 16 mmol/L (10-20); BUN (Urea Nitrogen) 15 mg/dL (7.0-18.7); Bilirubin, Total 0.4 mg/dL (0.2-1.2); Calc. Creatinine Clearance 0 mL/min (70-130); Calcium 9.4 mg/dL (7.8-10.44); Carbon Dioxide 23 mmol/L (22-29); Chloride 106 mmol/L (98-107); Globulin 3.8 g/dL (2.4-3.5); Glucose 85 mg/dL (70-105); Potassium 4.9 mmol/L (3.5-5.1); Protein, Total 8.5 g/dL (6.0-8.3); Sodium 140 mmol/L (136-145)
[2021-08-27 17:14] LABS: Anisocytosis SLIGHT = 6-15 cells (100X) (0-5/hpf); Elliptocytes SLIGHT = 2-5 cells (100X) (0-1/hpf); Hypochromia SLIGHT = 6-15 cells (100X) (0-5/hpf); Microcytosis SLIGHT = 6-15 cells (100X) (0-5/hpf); Ovalocytes SLIGHT = 2-5 cells (100X) (0-1/hpf)
[2021-08-27 17:15] LABS: Platelet Morphology Comment Appears Adequate
[2021-08-27 17:19] LABS: Bilirubin Neg (Negative); Blood, Urine 250 (Negative); Clarity Cloudy (Clear); Glucose, Urine (Dipstick) Normal (Negative); Ketone, Urine Negative (Negative); Leukocyte Negative (Negative); Nitrite Negative (Negative); Protein, Urine (Dipstick) 30 mg/dl (Neg-Trace); Specific Gravity, Urine 1.015 (1.002-1.036); Urobilinogen Normal mg/dL (Less than 2); pH, Urine 6.5 (5.0-9.0)
[2021-08-27 17:28] LABS: Bacteria/HPF Rare-Few HPF (None Seen); RBC/HPF Greater than 50 HPF (0-3); Squamous Epithelial 0-3 HPF (0-3); WBC/HPF 0-3 HPF (0-3)
== END 2021-08-27 17:20 | disposition left against medical advice (07) ==
LOC: CSHERS 14:39
DX: R11.2 Nausea with vomiting, unspecified (principal); R19.7 Diarrhea, unspecified; R10.9 Unspecified abdominal pain; R31.9 Hematuria, unspecified; Z79.899 Other long term (current) drug therapy
CPT/HCPCS: 36415; 80053; 81003; 81015; 85025; 96365; 96372; 96375; C9113; J0500; J2550